=== PATIENT | female | born 1960 | race Caucasian/White ===

== ENCOUNTER 2022-09-20 13:22 | Day surgery (SDC) | payer OTHER ==
[2022-09-20] MEDS ORDERED: Depo-Medrol 40 MG/ML IM ONE (13:23)
[2022-09-20] MEDS ORDERED: BUPIVACAINE 0.5% VIAL IJ ONE (13:23)
[2022-09-20] MEDS ORDERED: DIPRIVAN 200 MG/20 ML IV ONE (14:54)
[2022-09-20] MEDS ORDERED: Lactated Ringers 1,000 ML IV ONE (16:02)
--- NOTE | 2022-09-20 16:40 | XRAY ---
Indication: Bilateral hip and bilateral greater trochanter bursa injections. Intraoperative fluoroscopy provided for 29 seconds. 4 digital spot images submitted for interpretation demonstrates needle tip lateral to the left/right femur necks and lateral to the left/right greater trochanters. Small amount of contrast injected for all needle tip placement. Correlate with intraoperative findings/report.
--- NOTE | 2022-09-20 16:50 | XRAY ---
29 seconds of fluoroscopy was used in surgery for a bilateral greater trochanteric bursa and bilateral intra-articular hip injection.
== END 2022-09-20 15:25 | disposition home or self-care (01) ==
LOC: SDC-PAIN 13:22
PROVIDERS: ATTEND Psychiatry & Neurology Pain Medicine
DX: M16.0 Bilateral primary osteoarthritis of hip (principal); M70.62 Trochanteric bursitis, left hip; M70.61 Trochanteric bursitis, right hip; Z79.899 Other long term (current) drug therapy
CPT/HCPCS: 20610; 73522; 77002; J1030; J2704; Q9966